=== PATIENT | female | born 1990 | race Two or more races ===

== ENCOUNTER → 2025-06-16 | Emergency (ER) | payer OTHER ==
[~2025-06-16] VITALS: Ht 157.5 cm; Wt 49.0 kg
[~2025-06-16] MED LIST: ATORVASTATIN CA10 MG PO
== END | disposition left against medical advice (07) ==
LOC: ER 21:30
DX: Z53.21 Procedure and treatment not carried out due to patient leaving prior to being seen by health care provider (principal)